=== PATIENT | male | born 1950 | race Caucasian/White ===

== ENCOUNTER 2017-05-23 08:52 | Day surgery (SDC) | payer OTHER ==
[~2017-05-23] VITALS: Ht 162.6 cm; Wt 79.4 kg
[~2017-05-23 08:52] MED LIST: AMARYL1 MG PO; ASPIR-LOW81 MG PO; ASPIR-TRIN325 M1 PO; Advair 250/50 Diskus IH; Advair HFA 115/21 IH; Amaryl PO; Aspirin E.C. PO; DIGESTIVE ENZY1 EAC3 PO; DIOVAN160 MG PO; Effient PO; GLIMEPIRIDE2 MG PO; GLUCOPHAGE1000 MG PO; JANUVIA100 MG PO; LANTUS 3 M100 UNITS1 SC; LOVAZA1 GM PO; Levaquin PO; METFORMIN HCL500 MG PO; METOPROLOL SUCC25 MG PO; NEXIUM40 MG PO; NITROSTAT,NITR0.4 M1 SL; NORVASC10 MG PO; NOVOLOG PE100 UNITS/ SC; Nitrostat,NitroQuick SL; Proventil,Ventolin H IH; RED YEAST RICE600 MG PO; TOPROL XL50 MG PO; Tessalon Perle PO; VITAMIN D35000 UNIT PO; ZETIA10 MG PO; ZOCOR40 MG PO; Zocor PO
[2017-05-23 09:45] LABS: POINT-OF-CARE METER ID UU13113696
[2017-05-23 12:27] LABS: POINT-OF-CARE METER ID UU13113819
== END 2017-05-23 17:05 | disposition home or self-care (01) ==
LOC: CATH 08:52
PROVIDERS: Internal Medicine Cardiovascular Disease
DX: I25.10 Atherosclerotic heart disease of native coronary artery without angina pectoris (principal); I25.82 Chronic total occlusion of coronary artery; Z95.5 Presence of coronary angioplasty implant and graft; Z95.1 Presence of aortocoronary bypass graft; E11.9 Type 2 diabetes mellitus without complications; Z79.82 Long term (current) use of aspirin
CPT/HCPCS: 82948; C1750; C1769; C1887; J1644; J2250; J3010